=== PATIENT | male | born 1955 | race Caucasian/White ===

== ENCOUNTER 2021-12-18 14:36 | Inpatient (IN) | payer OTHER ==
[2021-12-18] VITALS (9 sets, daily range): BP systolic 112–151; BP diastolic 49–80
[~2021-12-18] VITALS: Ht 182.8 cm; Wt 106.6 kg
[~2021-12-18 14:36] MED LIST: ASPIRIN81 M1 PO; CLINDAMYCIN HC300 MG PO; DIOVAN40 MG PO; KEFLEX500 MG PO; TRICOR145 MG PO; ZETIA10 MG PO
[2021-12-18 15:06] LABS: BASO # 0.1 10*3/uL (0.0-0.1); BASO % 0.5 % (0.0-1.0); EOS # 0.1 10*3/uL (0.0-0.4); EOS % 0.5 % (1.0-4.0); HEMATOCRIT 44.7 % (42.0-52.0); LYMPH # 1.5 10*3/uL (1.3-4.4); LYMPH % 12.4 % (27.0-41.0); MEAN CELL VOLUME 88.7 fl (80.0-94.0); MEAN CORPUSCULAR HGB 30.8 pg (27.0-31.0); MEAN CORPUSCULAR HGB CONC 34.7 g/dl (33.0-37.0); MONO # 0.7 10*3/uL (0.1-1.0); MONO % 5.6 % (3.0-9.0); NEUT % 80.8 % (47.0-73.0); PLATELET COUNT AUTOMATED 284 10*3/uL (130-400); RED BLOOD COUNT 5.04 10*6/uL (4.50-5.90); WHITE BLOOD COUNT 12.4 10*3/uL (4.8-10.8)
[2021-12-18 15:17] LABS: ACT PARTIAL THROMBO TIME 25.1 SECONDS (20.0-32.1)
[2021-12-18 15:22] LABS: ALBUMIN 3.9 gm/dl (3.1-4.5); CREATININE 1.5 mg/dL (0.70-1.30); POTASSIUM 3.7 mmol/L (3.5-5.1); TOTAL PROTEIN 6.9 gm/dL (6.4-8.2)
[2021-12-18] MEDS ORDERED: IRBESARTAN150 MG PO (21:39)
[2021-12-18] MEDS ORDERED: ZOCOR20 MG PO (21:39)
[2021-12-18] MEDS ORDERED: DICLOFENAC SODI75 M3 PO (21:40)
[2021-12-18 22:47] LABS: BILIRUBIN Negative (Negative); BLOOD Negative (Negative); CLARITY Clear (Clear); COLOR Yellow (Yellow); GLUCOSE Negative (Negative); KETONE Negative (Negative); LEUKO ESTERASE Negative (Negative); NITRITE Negative (Negative); SPECIFIC GRAVITY >= 1.030 (1.001-1.030); UROBILINOGEN 0.2 E.U./dl (0.0-1.0)
[2021-12-18 23:12] LABS: RBC 0-2 rbc/hpf (0-2); WBC 0-2 wbc/hpf (0-5)
[2021-12-19 06:17] LABS: ACT PARTIAL THROMBO TIME 27.8 SECONDS (20.0-32.1)
[2021-12-19 06:27] LABS: ALBUMIN 3.4 gm/dl (3.1-4.5); BUN 18 mg/dl (7-24); CHLORIDE 111 mmol/L (98-107); CHOLESTEROL 128 mg/dL (<200); CREATININE 0.98 mg/dL (0.70-1.30); POTASSIUM 3.6 mmol/L (3.5-5.1); SGOT/AST 16 IU/L (3-35); SGPT/ALT 40 U/L (12-78); SODIUM 141 mmol/L (136-145)
[2021-12-19 06:33] LABS: ALKALINE PHOSPHATASE 65 U/L (45-117); BASO % 0.5 % (0.0-1.0); EOS # 0.1 10*3/uL (0.0-0.4); EOS % 1.6 % (1.0-4.0); FREE T4 0.96 ng/dl (0.76-1.46); HEMATOCRIT 42.6 % (42.0-52.0); LDL CHOLESTEROL 63 mg/dL (9-159); LYMPH # 2.3 10*3/uL (1.3-4.4); LYMPH % 25.8 % (27.0-41.0); MEAN CELL VOLUME 88.9 fl (80.0-94.0); MEAN CORPUSCULAR HGB 30.1 pg (27.0-31.0); MEAN CORPUSCULAR HGB CONC 33.8 g/dl (33.0-37.0); MEAN PLATELET VOLUME 12.3 fl (9.6-12.3); MONO # 0.6 10*3/uL (0.1-1.0); MONO % 7.2 % (3.0-9.0); NEUT # 5.7 10*3/uL (2.3-7.9); NEUT % 64.8 % (47.0-73.0); PLATELET COUNT AUTOMATED 255 10*3/uL (130-400); RED BLOOD COUNT 4.79 10*6/uL (4.50-5.90); THYROID STIM HORMONE (HS) 0.862 uIU/ml (0.358-4.75); TOTAL PROTEIN 6.2 gm/dL (6.4-8.2); TRIGLYCERIDES 134 mg/dl (<150); WHITE BLOOD COUNT 8.8 10*3/uL (4.8-10.8)
[2021-12-19 08:00] VITALS: BP 128/70
[2021-12-19] MEDS ORDERED: CLOPIDOGREL75 MG PO (11:28)
[2021-12-19] MEDS ORDERED: ZOCOR80 MG PO (11:28)
[2021-12-19 11:43] VITALS: BP 135/68
== END 2021-12-19 14:09 | disposition home or self-care (01) | DRG 69 ==
LOC: ED 14:36 → EDHOLD 19:20
PROVIDERS: Emergency Medicine; Internal Medicine; ADMIT Student in an Organized Health Care Education/Training Program; ATTEND Student in an Organized Health Care Education/Training Program
DX: G45.9 Transient cerebral ischemic attack, unspecified (principal); N18.31 Chronic kidney disease, stage 3a; D72.829 Elevated white blood cell count, unspecified; Z96.652 Presence of left artificial knee joint; F17.210 Nicotine dependence, cigarettes, uncomplicated; R73.9 Hyperglycemia, unspecified; I12.9 Hypertensive chronic kidney disease with stage 1 through stage 4 chronic kidney disease, or unspecified chronic kidney disease; E78.2 Mixed hyperlipidemia; F17.290 Nicotine dependence, other tobacco product, uncomplicated; E87.8 Other disorders of electrolyte and fluid balance, not elsewhere classified; E83.41 Hypermagnesemia; Z80.1 Family history of malignant neoplasm of trachea, bronchus and lung; Z79.82 Long term (current) use of aspirin; Z71.6 Tobacco abuse counseling; Z79.899 Other long term (current) drug therapy; Z90.49 Acquired absence of other specified parts of digestive tract